=== PATIENT | male | born 1930 | race African-American/Black ===

== ENCOUNTER → 2016-06-21 | Outpatient (CLI) | payer MEDICARE, OTHER | END | disposition home or self-care (01) | LOC: RADPV 12:08 | PROVIDERS: ATTEND Orthopaedic Surgery | DX: M17.11 Unilateral primary osteoarthritis, right knee (principal); D48.0 Neoplasm of uncertain behavior of bone and articular cartilage; I70.201 Unspecified atherosclerosis of native arteries of extremities, right leg ==

== ENCOUNTER → 2016-09-06 | Outpatient (CLI) | payer MEDICARE, OTHER | END | disposition home or self-care (01) | LOC: RADPV 14:21 | PROVIDERS: ATTEND Orthopaedic Surgery | DX: M86.661 Other chronic osteomyelitis, right tibia and fibula (principal); S82.51XK Displaced fracture of medial malleolus of right tibia, subsequent encounter for closed fracture with nonunion; X58.XXXD Exposure to other specified factors, subsequent encounter ==

== ENCOUNTER → 2016-09-12 | Outpatient (CLI) | payer MEDICARE, OTHER ==
[~2016-09-12] MED LIST: MEDRONATE TC99M/UD<30 MCL ISOTOPE 1 EA INJ INJ ONE
== END | disposition home or self-care (01) ==
LOC: RADMN 08:44
PROVIDERS: ATTEND Orthopaedic Surgery
DX: M21.961 Unspecified acquired deformity of right lower leg (principal)
CPT/HCPCS: 78315; A9503